=== PATIENT | female | born 1975 | race Caucasian/White ===

== ENCOUNTER 2016-05-12 10:29 | Emergency (ER) | payer MEDICAID ==
[~2016-05-12 10:29] MED LIST: AMITRIPTYLINE H25 MG PO; B12; BUPROPION HCL100 M2 PO; CELEXA40 M2 PO; COLACE100 MG PO; COMPAZINE10 MG PO; FEOSOL325 M1 PO; FERROUS FUMARA324 MG PO; FOLIC ACID; GLUCOPHAGE XR500 MG PO; GLUCOPHAGE1000 MG PO; GLUCOPHAGE500 M3 PO; GLUCOPHAGE500 MG PO; HUMALOG100 U/ML SQ; HUMULIN N100 U/ML SQ; IBUPROFEN200 M3 PO; LANTUS100 UNITS/ SC; LISINOPRIL5 MG PO; LYRICA150 MG/CAP PO; LYRICA75 MG/CAP PO; MACROBID 100 M100 MG PO; MELOXICAM15 MG PO; MIGRAINE MEDICATION; MIRAPEX0.25 MG PO; MOTRIN800 MG PO; NEXIUM20 M1 PO; NORCO 5-325 TA1 EACH PO; NORCO 5/3251 TAB PO; NOVOLIN N100 U/ML SQ; PERCOCET 5/3251 TAB PO; PRENATAL1 EACH PO; PROTONIX20 M2 PO; REQUIP GT; REQUIP1 MG PO; REQUIP2 M1 PO; REQUIP2 MG PO; SERTRALINE HCL50 MG PO; SLOW FE47.5 MG PO; TEGRETOL XR200 M1 PO; TIZANIDINE HCL4 M3 PO; TYLENOL325 M2 PO; VIIBRYD40 MG PO; VISTARIL50 M1 PO; ZOFRAN ODT4 MG/UDTAB PO; ZOFRAN4 M1 PO; ZOFRAN4 M2 PO
[2016-05-12 11:38] LABS: ANION GAP 11 mmol/L (0-20); BLOOD UREA NITROGEN 13 mg/dl (6-24); CALCIUM 8.2 mg/dl (8.5-10.5); CARBON DIOXIDE-VENOUS 27 mmol/L (22-32); CHLORIDE 106 mmol/l (96-110); CREATININE 0.51 mg/dl (0.50-1.10); GLUCOSE 224 mg/dL (70-110); SODIUM 140 mmol/L (135-145); eGFR VALUE FOR BLACK >90 mL/Min
[2016-05-12 11:40] LABS: URINE BILIRUBIN NEGATIVE (NEG); URINE BLOOD NEGATIVE (NEG); URINE GLUCOSE (UA) LARGE (NEG); URINE KETONE NEGATIVE (NEG); URINE LEUKOCYTE ESTERASE NEGATIVE (NEG); URINE NITRITE NEGATIVE (NEG); URINE PH 6.5 (5.0-8.0); URINE PROTEIN NEGATIVE (NEG); URINE SPECIFIC GRAVITY 1.015 (1.003-1.030)
[2016-05-12 11:43] LABS: POTASSIUM 4.1 mmol/L (3.7-5.1)
[2016-05-12 11:48] LABS: URINE APPEARANCE CLEAR; URINE COLOR YELLOW
== END 2016-05-12 13:20 ==
LOC: EDMED 10:29
PROVIDERS: Emergency Medicine
DX: G43.909 Migraine, unspecified, not intractable, without status migrainosus (principal); E11.65 Type 2 diabetes mellitus with hyperglycemia; F32.9 Major depressive disorder, single episode, unspecified; Z79.4 Long term (current) use of insulin; Z90.49 Acquired absence of other specified parts of digestive tract
CPT/HCPCS: J0780; J1200; J1885; J7030